=== PATIENT | female | born 1970 | race African-American/Black ===

== ENCOUNTER 2022-03-16 13:48 | Emergency (ER) | payer BC, MEDICAID, OTHER ==
[~2022-03-16] VITALS: Ht 172.7 cm; Wt 73.0 kg
[2022-03-16] MEDS ORDERED: KETOROLAC 60MG/2ML VIAL IM ONE (14:30)
[2022-03-16 14:40] VITALS: BP 128/79
== END 2022-03-16 16:38 | disposition home or self-care (01) ==
LOC: ER 13:48
DX: M79.672 Pain in left foot (principal); I10 Essential (primary) hypertension; G62.9 Polyneuropathy, unspecified; M54.31 Sciatica, right side; M72.2 Plantar fascial fibromatosis; F17.210 Nicotine dependence, cigarettes, uncomplicated; M48.02 Spinal stenosis, cervical region; Z86.73 Personal history of transient ischemic attack (TIA), and cerebral infarction without residual deficits; Z88.0 Allergy status to penicillin
CPT/HCPCS: 73630; 96372; 99283; J1885